=== PATIENT | male | born 1965 | race Hispanic/Latino ===

== ENCOUNTER → 2021-07-01 | Outpatient (CLI) | payer OTHER | END | disposition home or self-care (01) | LOC: OIH 08:29 | PROVIDERS: ATTEND Physician Assistant Medical | DX: Z13.6 Encounter for screening for cardiovascular disorders (principal); I25.10 Atherosclerotic heart disease of native coronary artery without angina pectoris; I51.5 Myocardial degeneration | CPT/HCPCS: 75571 ==

== ENCOUNTER → 2023-07-25 | Outpatient (CLI) | payer OTHER | END | disposition home or self-care (01) | LOC: OIH 10:03 | PROVIDERS: ATTEND Physician Assistant Medical | DX: Z13.6 Encounter for screening for cardiovascular disorders (principal) | CPT/HCPCS: 75571 ==